=== PATIENT | male | born 1965 | race Caucasian/White ===

== ENCOUNTER 2017-04-16 20:55 | Emergency (ER) | payer OTHER ==
[~2017-04-16] VITALS: Ht 165.1 cm; Wt 59.0 kg
[~2017-04-16 20:55] MED LIST: PERCOCET 5-3251 EACH PO
[2017-04-16] MEDS ORDERED: ELIMITE60 GM TOP (21:42)
[2017-04-16] MEDS ORDERED: HYDROXYZINE HCL25 M1 PO (21:42)
[2017-04-16] MEDS ORDERED: BUPRENORPHIN-N1 EACH PO (21:58)
[2017-04-16 22:30] VITALS: BP 124/82
== END 2017-04-16 22:31 | disposition home or self-care (01) ==
LOC: ER 20:55
DX: B86 Scabies (principal); G89.29 Other chronic pain; M25.559 Pain in unspecified hip; Z88.2 Allergy status to sulfonamides

== ENCOUNTER 2017-05-26 01:16 | Emergency (ER) | payer OTHER ==
[~2017-05-26] VITALS: Ht 165.1 cm; Wt 58.5 kg
[~2017-05-26 01:16] MED LIST changes: +BUPRENORPHIN-N1 EACH PO; +ELIMITE60 GM TOP; +HYDROXYZINE HCL25 M1 PO
[2017-05-26] MEDS ORDERED: CYMBALTA20 MG PO (01:32)
[2017-05-26] MEDS ORDERED: ELIMITE60 GM TOP (01:51)
[2017-05-26] MEDS ORDERED: STROMECTOL3 MG PO (01:51)
[2017-05-26 02:13] VITALS: BP 129/85
== END 2017-05-26 02:14 | disposition home or self-care (01) ==
LOC: ER 01:16
DX: R21 Rash and other nonspecific skin eruption (principal); B86 Scabies; G89.29 Other chronic pain; M25.559 Pain in unspecified hip; Z88.2 Allergy status to sulfonamides

== ENCOUNTER 2018-02-05 00:16 | Emergency (ER) | payer OTHER ==
[~2018-02-05] VITALS: Ht 165.1 cm; Wt 54.4 kg
[~2018-02-05 00:16] MED LIST changes: +CYMBALTA20 MG PO; +STROMECTOL3 MG PO
[2018-02-05] MEDS ORDERED: SUBOXONE 12 MG1 EACH (00:46)
[2018-02-05 01:00] LABS: ABSOLUTE NEUTROPHILS 4.4 thou/uL (1.4-8.2); BASOPHILS 0.5 % (0.0-2.0); EOSINOPHILS 0.3 % (0.0-3.0); HEMOGLOBIN 17.4 gm/dL (14.0-18.0); LYMPHOCYTES 17.2 % (24.0-44.0); MCH 30.8 pg (26.0-34.0); MCHC 35.6 g/dL (28.0-37.0); MCV 86.6 fL (80.0-100.0); PLATELET COUNT 240 thou/uL (150-400); RBC 5.66 mil/uL (4.50-6.00); RDW 13.4 % (10.5-14.5)
[2018-02-05 01:04] LABS: ANION GAP 15 mmol/L (7-16); BUN 7 mg/dL (7-18); CALCIUM 8.9 mg/dL (8.5-10.1); CHLORIDE 101 mmol/L (98-107); CO2 21 mmol/L (21-32); CREATININE 1.1 mg/dL (0.7-1.3); GLUCOSE 83 mg/dL (74-106); POTASSIUM 3.1 mmol/L (3.5-5.1); SODIUM 137 mmol/L (136-145)
[2018-02-05 01:05] LABS: URINE BILIRUBIN NEGATIVE (Negative); URINE BLOOD NEGATIVE (Negative); URINE CLARITY CLEAR; URINE COLOR YELLOW; URINE GLUCOSE-RANDOM* NEGATIVE (Negative); URINE KETONES NEGATIVE (Negative); URINE LEUKOCYTES-REFLEX NEGATIVE (Negative); URINE NITRITE-REFLEX NEGATIVE (Negative); URINE PROTEIN (DIPSTICK) NEGATIVE (Negative); URINE SPECIFIC GRAVITY <= 1.005 (1.005-1.035); URINE UROBILINOGEN 0.2 E.U./dl (0.2-1.0)
[2018-02-05 01:10] LABS: ALBUMIN 4.5 g/dL (3.4-5.0); SALICYLATE < 2.8 mg/dL (2.8-20.0); SGOT 47 U/L (15-37); SGPT 58 U/L (30-65); TOTAL BILIRUBIN 0.7 mg/dL (<0.1-1.0); TOTAL PROTEIN 7.7 g/dL (6.4-8.2)
[2018-02-05 01:14] LABS: AMP/METHAMP Negative (Negative); BARBITURATES Negative (Negative); BENZODIAZEPINES Negative (Negative); COCAINE POSITIVE (Negative); METHADONE Negative (Negative); OPIATES POSITIVE (Negative); PCP Negative (Negative)
[2018-02-05] MEDS ORDERED: ZOFRAN ODT8 MG PO (01:32)
[2018-02-05] MEDS ORDERED: ATIVAN1 MG PO (01:32)
[2018-02-05] MEDS ORDERED: CLONIDINE0.1 PO (01:32)
[2018-02-05 02:11] VITALS: BP 140/98
== END 2018-02-05 02:15 | disposition home or self-care (01) ==
LOC: ER 00:16
PROVIDERS: Emergency Medicine
DX: F11.23 Opioid dependence with withdrawal (principal); F10.129 Alcohol abuse with intoxication, unspecified; F14.10 Cocaine abuse, uncomplicated; E87.6 Hypokalemia; M54.9 Dorsalgia, unspecified; G89.29 Other chronic pain; Z88.2 Allergy status to sulfonamides